=== PATIENT | male | born 1995 | race Caucasian/White ===

== ENCOUNTER 2018-01-29 21:02 | Emergency (ER) | payer OTHER ==
[2018-01-29] MEDS: BACITRACIN OINT 30GM TOP (22:30)
[2018-01-29] MEDS ORDERED: POLYSPORIN TOPICAL OINTMENT 15GM As Ordered (22:31)
[2018-01-29] MEDS: PERCOCET 5MG/325MG TAB PO (22:43)
[2018-01-29] MEDS: OXYCODONE/APAP 5MG/325MG(BULK FOR ED) 1 TABLET PO (22:45)
[2018-01-29] MEDS: CEPHALEXIN 500 MG CAP PO (23:08)
== END 2018-01-29 23:27 | disposition home or self-care (01) ==
LOC: M ED 21:02
DX: S70.12XA Contusion of left thigh, initial encounter (principal); T14.8XXA Other injury of unspecified body region, initial encounter; V86.95XA Unspecified occupant of 3- or 4- wheeled all-terrain vehicle (ATV) injured in nontraffic accident, initial encounter; Y92.9 Unspecified place or not applicable; Y93.9 Activity, unspecified; Y99.9 Unspecified external cause status
CPT/HCPCS: 73080